=== PATIENT | male | born 1945 | race Caucasian/White ===

== ENCOUNTER 2025-01-03 11:10 | Emergency (ER) | payer MEDICARE ==
[~2025-01-03] VITALS: Ht 177.8 cm; Wt 111.0 kg
--- NOTE | 2025-01-03 11:33 | Physician Documentation ---
History of Present Illness ~ Chief Complaint: Mechanical Fall Stated Complaint: FALL Time Seen by MD: 11:15 HPI History obtained from the gentleman and EMS. The EMS was called for inability to ambulate. The gentleman was apparently getting his dogs into the house, somehow got tripped up, sustained a slow fall. He subsequently was not able to get up. The gentleman states that he does not hit his head, did not pass out. He actually has a no pain whatsoever but does report generalized weakness. He denies any chest pain or difficulty breathing. Denies any nausea, vomiting, diarrhea, abdominal pain. He states that he is simply did not have enough strength to get up. Denies focal deficits when inquired in plain [place]. Per EMS, the son suspects that the gentleman is a daily drinker. Medication Reconciliation Allergies: Coded Allergies: No Known Allergies (Unverified , 01/03/25) Review of Systems ROS 10 point review of systems was performed and unless noted above in HPI is negative for acute process/complaint. Physical Exam Vital Signs: Temperature: 98.5, Source: Oral, Heart Rate: 67, Respiratory Rate: 16, BP: 119/60, Pulse Oximetry: 91, Weight: 111.000 Oxygen Flow Rate: 0 Physical Exam GENERAL: Awake, alert, oriented, GCS 15, no apparent distress, non-toxic appearing, answers questions, follows commands appropriately. Examined on EMS gurney and placed in bed 7. HEENT: Atraumatic, normocephalic, pupils equal, extraocular muscles intact, sclerae anicteric, mucus membranes moist, oropharynx is clear, no stridor. NECK: supple, full active range of motion, trachea midline, no thyromegaly, no lymphadenopathy, no JVD. CARDIOVASCULAR: regular rate/rhythm, no murmurs/gallops/rubs, Pulses are 2+ in all extremities and symmetric. Capillary refill less than 2 seconds. PULMONARY: Nonlabored, good air movement ,no respiratory distress, speaking in full sentences, clear to auscultation bilaterally, no wheezing, no ronchi, no rales, no accessory muscle use. GASTROINTESTINAL: Soft, non-tender, non-distended, normal active bowel sounds, no organomegaly, no pulsatile masses, no CVA tenderness. NEUROLOGIC: Lucid with normal mental status. Normal facial symmetry. Moves all extremities symmetrically and with purpose. No truncal ataxia. Speech is fluid without evidence of dysarthria or aphasia, no focal deficits appreciated. MUSCULOSKELETAL: There is full range of motion of all extremities. There is no joint pain or joint swelling or joint erythema. There is no muscle pain or tenderness or swelling. EXTREMITIES: warm, well-perfused, no cyanosis, no clubbing, no edema, no acute deformities. Skin: warm, dry, no rashes or lesions, no jaundice, no petechiae orpurpura. No ecchymosis. PSYCHIATRIC: Normal affect, normal insight, normal concentration. Focused exam: [] Progress Results/Orders Results/Orders Orders - VANESA BRUNO DO Drug Screen, Urine (01/03/25 11:26) Urinalysis, Cult If Indicated (01/03/25 11:) Chest,Single View (01/03/25 11:26) Monitor (01/03/25 11:26) Saline Lock (01/03/25 11:26) Ct Head (01/03/25 11:) Oxygen (01/03/25 11:35) Completed Orders - VANESA BRUNO DO Ethanol (01/03/25 11:26) Electrocardiogram (01/03/25 11:26) Cbc/Diff (01/03/25 11:26) CK (01/03/25 11:26) Pt Inr (01/03/25 11:26) PTT (01/03/25 11:26) Chest,Single View (01/03/25 11:26) PBNP (01/03/25 11:26) MG (01/03/25 11:26) Ct Head (01/03/25 11:26) CMP (01/03/25 11:26) Hs Troponin I W Calculations (01/03/25 11:26) Hs Troponin I W Calculations (01/03/25 13:26) Normal Saline 1000ml (0.9% Sodium Chlori (01/03/25 15:15) Medications Received in ER Medications (Trade) Dose Ordered Sig/Saige Route PRN Reason Start Time Stop Time Status Last Admin Dose Admin (0.9% sodium chloride (NS) 1000ml IV soln) 2,000 ml ONCE ONCE IVB 01/03/25 15:15 01/03/25 15:16 DC 01/03/25 15:16 2,000 ML Vital Signs 01/03/25 01/03/25 01/03/25 11:15 11:20 12:54 Temp 98.5 Pulse 67 65 Resp 16 16 16 B/P (MAP) 119/60 103/61 (75) Pulse Ox 91 92 O2 Flow Rate 0 0 Laboratory Tests Test 01/03/25 11:25 01/03/25 13:36 White Blood Count 6.3 Red Blood Count 4.29 L Hemoglobin 15.2 Hematocrit 43.7 Mean Corpuscular Volume 101.8 H Mean Corpuscular Hemoglobin 35.4 H Mean Corpuscular Hemoglobin Concent 34.8 Red Cell Distribution Width 14.4 Platelet Count 192 Mean Platelet Volume 6.9 L Neutrophils (%) (Auto) 40.1 L Lymphocytes (%) (Auto) 46.1 Monocytes (%) (Auto) 9.0 Eosinophils (%) (Auto) 3.7 Basophils (%) (Auto) 1.1 H Neutrophils # (Auto) 2.5 Lymphocytes # (Auto) 2.9 Monocytes # (Auto) 0.6 Eosinophils # (Auto) 0.2 Basophils # (Auto) 0.1 CBC Comment Prothrombin Time 11.8 INR International Normalized Ratio 1.2 Activated Partial Thromboplast Time 28 Coagulation Comments Sodium Level 131 L Potassium Level 3.8 Chloride Level 95 L Carbon Dioxide Level 28.4 Anion Gap 8 Blood Urea Nitrogen 5 L Creatinine 0.84 Estimated GFR/1.73 m2 88 BUN/Creatinine Ratio 6.0 L Glucose Level 128 H Calcium Level 7.9 L Magnesium Level 1.9 Total Bilirubin 0.4 Aspartate Amino Transf (AST/SGOT) 30 Alanine Aminotransferase (ALT/SGPT) 35 Alkaline Phosphatase 72 Total Creatine Kinase 134 Troponin I High Sensitivity 14 15 Pro-B-Type Natriuretic Peptide 103 Total Protein 6.5 Albumin 3.3 L Globulin 3.2 Albumin/Globulin Ratio 1.0 L Chemistry Comments Ethyl Alcohol Level 238 H Troponin I High Sens Percent Delta 7 Troponin I Hi Sens Absolute Change 1 Medical Decision Making Additional information obtaine: old records, other (EMS) Findings Facility Status: ED Holds, RME process The plan was discussed with the patient, who demonstrates clear understanding of the plan and is in agreement with the plan unless otherwise noted in the chart. All questions have been answered, all concerns were addressed unless otherwise documented. I was available throughout their ED stay for frequent reassessment and questions. Differential Diagnoses (considered and possible or likely): [Ground level fall, acute traumatic pain, closed head injury, concussion, subdural, subarachnoid, generalized weakness secondary to dehydration, urinary tract infection, pneumonia, occult bacteremia, electrolyte derangement, alcohol intoxication, drug toxidrome, less likely ACS or CHF] ??Differential Diagnoses (considered and unlikely, not requiring evaluation currently): [No evidence of lateralizing signs to suspect a stroke] MDM Data Please see HPI for the following: Independent Historians and external Records Review. Historian: [Patient] Independent Historians: ?[EMS, record review] Medication Management: [Reviewed medication list] Social History and determinants: [Reviewed] Please see the body of the note for the following: Any independent interpretations of ECG, imaging studies. All vitals signs/haemodynamics, ordered tests were independently reviewed and interpreted by myself. Nursing triage complaint and vitals reviewed, additional nursing notes were reviewed as available and I agree unless otherwise noted or documented in contradiction in the chart Vital Signs: Independently reviewed Labs: Independently interpreted Imaging: Independently interpreted Old Medical Records: Independently reviewed, see [facility] for relevant summary and information Pulse Oximetry: [96%] interpreted as [normal on room air] by me [Interior Decorator: [Regular Rate, Regular rhythm, no ectopy, NSR] reviewed and interpreted by me] Additionally notably showing: [Hemodynamics reviewed. The patient isn't febrile, not tachycardic, no evidence of hypotension respiratory distress. CBC normal, no leukocytosis, no anemia. Normal platelets. Coagulation panel shows normally in our. Chemistry shows a mild hypokalemia. Calcium was slightly decreased. Magnesium is normal. Initial and repeat troponins are negative. Ethanol is elevated at 238. The gentleman is drunk. CT head was obtained showing no acute intracranial process, chest x-ray shows no acute cardiopulmonary disease.] Tests considered but not ordered include: [Not applicable] Social Determinants of Health Impact: Patient was evaluated in [facility], [facility] [place] to healthcare due to below par ratio of patient to medical providers. [] Comorbid Conditions Impacting Present Evaluation and Care/Treatment: [Closet alcoholism] Management Discussions with other Healthcare Providers: [None] Treatment and Disposition Medication Management (Given or considered): []. See EMR for details Consideration for Hospitalization/Escalation/Deescalation of Care: Admission for observation has been considered, [however the patient is able to tolerate p.o., their symptoms are controlled, they are able to rely on oral medications, and their chief complaint/diagnosis can be managed on outpatient basis.] ?ED Course:?[The patient was allowed to metabolize to clinical sobriety. Family present at bedside.] ?Shared decision making:?[Patient is hemodynamically stable for discharge home with follow with their primary care provider. [ ] Specific and cautious return precautions provided and discussed with full understanding. Any incidental findings were also discussed and follow up recommendations given. [] All questions answered. Patient/family were able to verbalize back return precautions. Patient/family agree to plan. Copies of imaging and laboratory studies were provided.] Code status:?FULL Please see the full Electronic Medical Record for full details of nursing documentation, medications list, other records of complete past medical history and conditions, vital signs, laboratory studies, and any radiologic study interpretations by radiologists. Portions of this note were completed using [employer] dictation software and as a result there may exist minor errors in spelling. I have reviewed elements of past family and social history and agree as included in note. Differential Dx:Considerations: Include: Other (See the body of main note for the differential diagnosis) Departure Disposition: 01 HOME / SELF CARE / HOMELESS Impression: Primary Impression: Alcoholic intoxication Additional Impressions: Hyponatremia Generalized weakness Condition: Improved Discharge Instructions: Alcohol Intoxication, Weakness Referrals: NO PRIMARY CARE PROVIDER (PCP) Education Educated: Patient, Family Educated regarding: diagnosis, treatment, prognosis, need for follow up Signature Scribe Signature: No scribe Attestation: Date: Jan 03, 2025 Time: 11:34 This note accurately reflects clinical decisions, work performed by myself, DO DAMION Jimenez NICHOLAS M DO Jan 03, 2025 11:33
--- NOTE | 2025-01-03 11:36 | ELECTROCARDIOGRAPH REPORT ---
[facility] Test Date: 2025-01-03 Test Time: 11:34:25 Pat Name: MARY STEPHEN Department: [facility]- Patient ID: [id number] Room: Gender: M [employer]: : [id number] Requested By: VANESA BRUNO Order Number: [id number] Reading MD: Dr. Ran Pelaez Measurements Intervals [place] Rate: 65 P: 38 OR: 56 QRS: -70 QRSD: 155 T: 18 QT: 410 QTc: 427 Interpretive Statements Sinus rhythm Short OR interval RBBB and LAFB Left ventricular hypertrophy Electronically Signed On 01-04-2025 18:48:[address] Ran Pelaez Please click the below link to view image of tracing.
[2025-01-03 11:40] LABS: MEAN PLATELET VOLUME 6.9 FL (7.4-10.4); RED CELL DISTRIBUTION WIDTH 14.4 % (11.5-14.5)
[2025-01-03 11:54] LABS: APTT 28 SECONDS (22-32); INR 1.2 INR
[2025-01-03 11:59] LABS: CREATININE 0.84 MG/DL (0.60-1.10); TOTAL CARBON DIOXIDE 28.4 MMOL/L (24-32); eCRCL 75 ML/MIN; eGFR 88 ML/MIN
[2025-01-03 12:05] LABS: ETHANOL 238 MG/DL (<10); PRO BRAIN NATRIURETIC PEPTIDE 103 PG/ML (0-450)
--- NOTE | 2025-01-03 12:11 | RADIOLOGY REPORT ---
CT CT HEAD INDICATION: Fall, head strike EXAM DATE: 01/03/2025 11:43 AM COMPARISON: None RADIATION DOSE: CTDIvol: 67 mGy, DLP: 1197 mGy*cm PROCEDURE: CT scans of the head were obtained from the vertex to the skull base. Sagittal and coronal reconstructions were provided. All CT scans at this medical facility are performed using dose modulation techniques as appropriate to a performed exam including the following: Automated exposure control was utilized; adjustment of the MA and/or KV according to patient size; and use of iterative reconstruction technique. FINDINGS: There is sulcal and ventricular prominence. The brainshows normal morphology and tao-white matter differentiation, without intracranial hemorrhage, extra-axial fluid collection, mass effect or acute large vessel infarct. The ventricles are normal in size. The basal cisterns are patent. The skull and visible facial bones are intact. The paranasal sinuses, mastoid air cells and middle ear cavities are well-aerated. The soft tissues of the scalp are unremarkable. IMPRESSION: No acute intracranial abnormality.
--- NOTE | 2025-01-03 12:22 | RADIOLOGY REPORT ---
CHEST RADIOGRAPH Indication: Weakness Technique: Single frontal view of the chest was obtained Comparison: None FINDINGS: Lines and Tubes: None Lungs: No focal consolidation. Pleura: No effusion. No pneumothorax. Cardiomediastinal contours: Unremarkable Bones: No acute osseous abnormality. IMPRESSION: No acute cardiopulmonary disease.
[2025-01-03] MEDS: normal saline 1000ML IV soln IVB ONE (15:16)
[2025-01-03 16:06] VITALS: BP 121/73; PULSE 75; RESP 12; TEMP 98.4; O2SAT 98
== END 2025-01-03 16:10 | disposition home or self-care (01) ==
LOC: ER 11:11
DX: F10.129 Alcohol abuse with intoxication, unspecified (principal); E87.1 Hypo-osmolality and hyponatremia; Y90.7 Blood alcohol level of 200-239 mg/100 ml; W01.0XXA Fall on same level from slipping, tripping and stumbling without subsequent striking against object, initial encounter; Y93.89 Activity, other specified; Y92.89 Other specified places as the place of occurrence of the external cause; Y99.8 Other external cause status
CPT/HCPCS: 36415; 70450; 71045; 80053; 82550; 83735; 83880; 84484; 85025; 85610; 85730; 93005; 96360; 99285; G0480; J7030; 80320